=== PATIENT | male | born 1930 | race Caucasian/White ===

== ENCOUNTER → 2017-10-08 | Outpatient (CLI) | payer OTHER ==
[~2017-10-08] MED LIST: ACET325 PO; AMLO5; ATEN50; ATOR40TA; Aspir 8181 MG; Aspir 8181 MG PO; Aspirin EC325 MG PO; BACL10 PO; CHOL10002 PO; CLOP75; DOXA4; FAMO20; GAVILAX17 GM; Hydrochlorothia25 MG; MELA3; PANT40 PO; SILD50TA PO; SYSTANE ULTRA1 EACH OP; ZOLP5 PO
[2017-10-08 11:14] LABS: BASOPHILS ABSOLUTE AUTO 0.02 K/mm3 (0.00-0.23); BASOPHILS PERCENT AUTO 0 % (0-2); EOSINOPHILS ABSOLUTE AUTO 0.17 K/mm3 (0.00-0.68); EOSINOPHILS PERCENT AUTO 3 % (0-6); Hematocrit 44.9 % (37.0-53.0); Hemoglobin 15.3 g/dL (13.5-17.5); IMMATURE GRAN ABSOLUTE AUTO 0.01 K/mm3 (0.00-0.10); IMMATURE GRAN PERCENT AUTO 0 % (0-1); LYMPHOCYTES ABSOLUTE AUTO 1.46 K/mm3 (0.84-5.20); LYMPHOCYTES PERCENT AUTO 26 % (21-46); MONOCYTES PERCENT AUTO 9 % (4-13); Mean Corpuscular HGB 31.5 pg (26.0-34.0); Mean Corpuscular HGB Conc 34.1 g/dL (31.5-36.5); Mean Corpuscular Volume 93 fL (80-100); NEUTROPHILS ABSOLUTE AUTO 3.41 K/mm3 (1.96-9.15); NEUTROPHILS PERCENT AUTO 61 % (41-73); Platelet Count 191 K/mm3 (150-400); RDW Standard Deviation 47.8 fL (35.1-46.3); Red Blood Cell Count 4.85 M/mm3 (4.30-5.90); White Blood Cell Count 5.57 K/mm3 (4.00-11.30)
[2017-10-08 11:33] LABS: Albumin, Blood 3.3 g/dL (3.4-5.0); Albumin/Globulin Ratio 0.8 (0.8-1.8); Bilirubin, Total 0.5 mg/dL (0.1-1.0); Bun/Creatinine Ratio 17.2 (12.0-20.0); Creatinine, Blood 1.34 mg/dL (0.60-1.20); Free Thyroxine 0.94 ng/dL (0.70-1.60); Thyroid Stimulating Hormone 2.332 uIU/mL (0.360-4.800); Total Protein, Blood 7.3 g/dL (6.4-8.2)
== END | disposition home or self-care (01) ==
LOC: LAB EV 11:06 → LAB SHORT 11:06
PROVIDERS: Physician Assistant
DX: R53.83 Other fatigue (principal)
CPT/HCPCS: 80053; 83880; 84439; 84443; 85025

== ENCOUNTER 2018-12-29 17:30 | Observation (INO) | payer OTHER ==
[~2018-12-29] VITALS: Ht 167.6 cm; Wt 74.5 kg
[~2018-12-29 17:30] MED LIST changes: -ATOR40TA; +ATOR40TA PO; -CLOP75; +CLOP75 PO
[2018-12-29] MEDS ORDERED: CLON.5 PO (18:20)
[2018-12-29] MEDS ORDERED: POTA10T PO (18:21)
[2018-12-29] MEDS ORDERED: FURO40 PO (18:22)
[2018-12-29] MEDS ORDERED: SPIR25 PO (18:23)
[2018-12-29] MEDS ORDERED: CILO100 PO (18:26)
[2018-12-29] MEDS ORDERED: CENTRUM SILVER1 EAC2 PO (18:26)
[2018-12-29] MEDS ORDERED: Neurontin 100100 MG PO (18:26)
[2018-12-29] MEDS ORDERED: VITAMIN D-32000 UNIT PO (18:26)
[2018-12-29] MEDS ORDERED: TRAM50 PO (18:27)
[2018-12-29] MEDS ORDERED: ACET325 PO (18:27)
[2018-12-29] MEDS ORDERED: Flonase 0.05% N16 GM (18:28)
[2018-12-29] MEDS ORDERED: HYDCHL25 PO (19:56)
[2018-12-29] MEDS ORDERED: ZYRTEC10 M1 PO (20:02)
[2018-12-29 21:27] LABS: Albumin, Blood 3.4 g/dL (3.4-5.0); Albumin/Globulin Ratio 0.9 (0.8-1.8); Bilirubin, Direct 0.1 mg/dL (0.0-0.3); Bilirubin, Indirect 0.3 mg/dL (0.1-0.7); Bilirubin, Total 0.4 mg/dL (0.1-1.0); Globulin, Blood 3.9 g/dL (2.2-4.0); Total Protein, Blood 7.3 g/dL (6.4-8.2)
[2018-12-29 21:29] LABS: International Normalized Ratio 0.93; Prothrombin Time Results 9.9 Sec (9.7-11.5)
[2018-12-29 21:31] LABS: Free Thyroxine 1.1 ng/dL (0.70-1.60)
[2018-12-29 21:32] LABS: Thyroid Stimulating Hormone 1.5 uIU/mL (0.360-4.800)
[2018-12-30 01:15] LABS: Source, Urine Clean Catch
[2018-12-30 01:20] LABS: Bilirubin, Urine Neg (Neg); Blood, Urine Neg (Neg); Glucose Qualitative, Urine Neg (Neg); Ketones, Urine Neg (Neg); Leukocyte Esterase, Urine Neg (Neg); Nitrite, Urine Neg (Neg); Protein, Urine Neg (Neg); Urobilinogen, Urine NORM (Normal)
[2018-12-30 01:21] LABS: Appearance, Urine Clear (Clear); Color, Urine Yellow (P-Yellow)
[2018-12-30 05:00] LABS: Hematocrit 46.6 % (37.0-53.0); Hemoglobin 15.2 g/dL (13.5-17.5); Mean Corpuscular HGB 31.3 pg (26.0-34.0); Mean Corpuscular HGB Conc 32.6 g/dL (31.5-36.5); Mean Corpuscular Volume 96 fL (80-100); Mean Platelet Volume 9.3 fL (9.1-12.4); Platelet Count 192 K/mm3 (150-400); RDW Coefficient Variation 13.9 % (11.7-14.2); RDW Standard Deviation 49.2 fL (35.1-46.3); Red Blood Cell Count 4.85 M/mm3 (4.30-5.90); White Blood Cell Count 6.57 K/mm3 (4.00-11.30)
[2018-12-30 05:11] LABS: International Normalized Ratio 0.94
[2018-12-30 05:24] LABS: Alanine Aminotransfer (ALT/SGP 26 U/L (12-78); Albumin, Blood 3.5 g/dL (3.4-5.0); Alk Phos 72 U/L (50-136); Anion Gap 9 mmol/L (6-16); Aspartate Aminotrans (AST/SGOT 20 U/L (12-37); Bilirubin, Total 0.5 mg/dL (0.1-1.0); Blood Urea Nitrogen 25 mg/dL (8-24); Bun/Creatinine Ratio 19.1 (12.0-20.0); CO2, Blood 25 mmol/L (21-32); Calcium, Blood 9.1 mg/dL (8.5-10.1); Chloride, Blood 106 mmol/L (98-108); Creatinine, Blood 1.31 mg/dL (0.60-1.20); Glomerular Filtration Rate 55 (60-); Glucose, Blood 82 mg/dL (70-99); Magnesium, Blood 2.4 mg/dL (1.6-2.4); Phosphorus, Blood 2.7 mg/dL (2.5-4.9); Potassium, Blood 3.4 mmol/L (3.5-5.5); Sodium, Blood 140 mmol/L (136-145)
[2018-12-30 05:32] LABS: Albumin/Globulin Ratio 0.9 (0.8-1.8); Globulin, Blood 3.8 g/dL (2.2-4.0); Total Protein, Blood 7.3 g/dL (6.4-8.2)
--- NOTE | 2018-12-30 07:13 | NUR ---
SHIFT SUMMARY PT ARRIVED TO [facility] APPROX 2200. C/O CRAMPING IN L LEG AND MEDICATED PER EMAR PER DR MURRAY ORDERS. BLADDER SCAN SHOWED 430 DR SHEPARD ORDERED CALLAHAN. ELEVATED LEGS ON PILLOWS. BED ALARM IN USE.
--- NOTE | 2018-12-30 11:33 | NUR ---
Echocardiogram completed.
--- NOTE | 2018-12-30 18:02 | NUR ---
SHIFT SUMMARY: NO ACUTE CHANGES TO REPORT THIS SHIFT. PT A&O; HX CVA; CALM AND COOPERATIVE WITH CARE. TELE IN PLACE; SR c 1-DEG BLOCK @ [address] SHEPARD FOLLOWING; DIURESIS CONTINUING; 24-HOUR URINE COLLECTION VIA CALLAHAN. TM.
[2018-12-31 01:16] LABS: Protein, Urine Quantitative 9.5 mg/dL (0.0-11.9)
--- NOTE | 2018-12-31 03:46 | NUR ---
SHIFT SUMMARY- PT. ASLEEP T/O THE SHIFT, NO ACUTE CHANGES OVERNIGHT. CALLAHAN CATHETER IN PLACE AND DRAINING WELL. 24HR URINE COLLECTED AT 0100 AND TAKEN TO THE LAB. PT. ANTICIPATIONG D/C IN THE AM. CALL LIGHT WITHIN REACH, SIDE RAILS UP X2, AND BED ALARM ON.
[2018-12-31 05:05] LABS: Hematocrit 44.8 % (37.0-53.0); Hemoglobin 15.1 g/dL (13.5-17.5)
[2018-12-31 05:20] LABS: International Normalized Ratio 1.26; Prothrombin Time Results 13.1 Sec (9.7-11.5)
[2018-12-31 05:21] LABS: Albumin, Blood 3.2 g/dL (3.4-5.0); Anion Gap 7 mmol/L (6-16); Blood Urea Nitrogen 26 mg/dL (8-24); Bun/Creatinine Ratio 19.5 (12.0-20.0); CO2, Blood 28 mmol/L (21-32); Calcium, Blood 9.1 mg/dL (8.5-10.1); Chloride, Blood 104 mmol/L (98-108); Creatinine, Blood 1.33 mg/dL (0.60-1.20); Glomerular Filtration Rate 54 (60-); Glucose, Blood 107 mg/dL (70-99); Magnesium, Blood 2.2 mg/dL (1.6-2.4); Phosphorus, Blood 3.1 mg/dL (2.5-4.9); Potassium, Blood 3.6 mmol/L (3.5-5.5); Sodium, Blood 139 mmol/L (136-145)
--- NOTE | 2018-12-31 10:55 | NUR ---
SUMMARY/DISCHARGE PT DISCHARGED TO HOME, PT AND DAUGHTER VERBALIZED UNDERSTANDING OF DISCHARGE ORDERS, PT'S CATHETER HAS BEEN TAKEN OUT AND PT HAS BEEN ABLE TO VOID, PT'S DAUGHTER HAS ALREADY MADE A FOLLOW UP APPOINTMENT FOR HIS PCP FOR TOMORROW, PT TAKEN OUT SAFELY VIA WHEELCHAIR
== END 2018-12-31 10:45 | disposition home or self-care (01) ==
LOC: ER 17:30 → MEDS 17:31
PROVIDERS: Internal Medicine Nephrology; ADMIT Internal Medicine
DX: N17.9 Acute kidney failure, unspecified (principal); N18.3 Chronic kidney disease, stage 3 (moderate); E87.70 Fluid overload, unspecified; E87.6 Hypokalemia; I50.32 Chronic diastolic (congestive) heart failure; I73.9 Peripheral vascular disease, unspecified; E78.5 Hyperlipidemia, unspecified; I82.501 Chronic embolism and thrombosis of unspecified deep veins of right lower extremity; Z86.73 Personal history of transient ischemic attack (TIA), and cerebral infarction without residual deficits; Z87.19 Personal history of other diseases of the digestive system; Z79.82 Long term (current) use of aspirin; Z79.899 Other long term (current) drug therapy; Z86.018 Personal history of other benign neoplasm
CPT/HCPCS: 36415; 51702; 76770; 80048; 80053; 80069; 80076; 81003; 83735; 83880; 84100; 84156; 84439; 84443; 85014; 85018; 85025; 85027; 85610; 93306; 93926; 93970; 96365; 96366; 96375; 96376; 99284; A9270; G0378; J1940; J3480; J7040